=== PATIENT | female | born 1945 | race Caucasian/White ===

== ENCOUNTER 2021-10-18 09:25 | Outpatient (CLI) | payer MEDICARE | END 2021-10-18 09:26 | disposition home or self-care (01) | LOC: CSHLAB 09:25 | PROVIDERS: ATTEND Internal Medicine | DX: Z20.822 Contact with and (suspected) exposure to COVID-19 (principal) | CPT/HCPCS: 87811 ==

== ENCOUNTER 2021-10-20 14:14 | Outpatient (CLI) | payer MEDICARE | END 2021-10-20 14:15 | disposition home or self-care (01) | LOC: CSHCP 14:14 | PROVIDERS: ATTEND Internal Medicine | DX: R06.02 Shortness of breath (principal); R06.00 Dyspnea, unspecified; R05.9 Cough, unspecified | CPT/HCPCS: 94060; 94726; 94729; 94760 ==

== ENCOUNTER 2023-03-09 14:37 | Outpatient (CLI) | payer MEDICARE | END 2023-03-09 14:38 | disposition home or self-care (01) | LOC: CSHMAMMO 14:37 | PROVIDERS: ATTEND Internal Medicine | DX: Z13.820 Encounter for screening for osteoporosis (principal); E28.39 Other primary ovarian failure; M81.0 Age-related osteoporosis without current pathological fracture; Z78.0 Asymptomatic menopausal state | CPT/HCPCS: 77080 ==